=== PATIENT | male | born 1955 | race Caucasian/White ===

== ENCOUNTER → 2016-07-18 | Outpatient (CLI) | payer OTHER ==
[2016-07-18 11:19] LABS: MEAN CORPUSCULAR HEMOGLOBIN 32.7 pg (27.0-33.0); MEAN CORPUSCULAR HGB CONC 34.8 g/dl (32.0-36.5); MEAN CORPUSCULAR VOLUME 93.9 fl (80.0-96.0); RED CELL DISTRIBUTION WIDTH 13.1 % (11.5-14.5); WHITE BLOOD COUNT 6.5 K/mm3 (4.0-10.0)
[2016-07-18 11:40] LABS: ALBUMIN 4.4 GM/DL (3.2-5.2); ALBUMIN/GLOBULIN RATIO 1.57 (1.00-1.93); ALKALINE PHOSPHATASE 54 U/L (45-117); ALT/SGPT 48 U/L (12-78); ANION GAP 7 MEQ/L (8-16); AST/SGOT 32 U/L (15-37); BILIRUBIN,TOTAL 2.1 MG/DL (0.2-1.0); BLOOD UREA NITROGEN 9 MG/DL (7-18); CALCIUM LEVEL 9.6 MG/DL (8.5-10.1); CARBON DIOXIDE LEVEL 33 MEQ/L (21-32); CHLORIDE LEVEL 100 MEQ/L (98-107); CHOLESTEROL LEVEL 153 MG/DL (<200); CREATININE FOR GFR 0.85 MG/DL (0.70-1.30); GLOMERULAR FILTRATION RATE > 60.0 (>56); GLUCOSE, FASTING 108 MG/DL (70-105); POTASSIUM SERUM 4.3 MEQ/L (3.5-5.1); SODIUM LEVEL 140 MEQ/L (136-145); TOTAL PROTEIN 7.2 GM/DL (6.4-8.2); TRIGLYCERIDES LEVEL 113 MG/DL (<150)
== END ==
LOC: M LAB 10:45
PROVIDERS: ATTEND Family Medicine
DX: D64.9 Anemia, unspecified (principal)

== ENCOUNTER → 2016-09-19 | Outpatient (CLI) | payer OTHER ==
[2016-09-19 10:51] LABS: MEAN CORPUSCULAR HEMOGLOBIN 33.2 pg (27.0-33.0); MEAN CORPUSCULAR HGB CONC 35.4 g/dl (32.0-36.5); MEAN CORPUSCULAR VOLUME 93.8 fl (80.0-96.0); RED CELL DISTRIBUTION WIDTH 12.8 % (11.5-14.5); WHITE BLOOD COUNT 7.2 K/mm3 (4.0-10.0)
[2016-09-19 11:22] LABS: ALBUMIN 4.2 GM/DL (3.2-5.2); ALKALINE PHOSPHATASE 58 U/L (45-117); ALT/SGPT 50 U/L (12-78); ANION GAP 5 MEQ/L (8-16); AST/SGOT 34 U/L (15-37); BILIRUBIN,TOTAL 1.9 MG/DL (0.2-1.0); BLOOD UREA NITROGEN 9 MG/DL (7-18); CALCIUM LEVEL 9.2 MG/DL (8.8-10.2); CARBON DIOXIDE LEVEL 33 MEQ/L (21-32); CHLORIDE LEVEL 102 MEQ/L (98-107); CHOLESTEROL LEVEL 151 MG/DL (<200); CREATININE FOR GFR 0.84 MG/DL (0.70-1.30); GLOMERULAR FILTRATION RATE > 60.0 (>49); GLUCOSE, FASTING 113 MG/DL (80-110); PERCENT SATURATION 33.9 % (19.7-37.4); POTASSIUM SERUM 4.1 MEQ/L (3.5-5.1); SODIUM LEVEL 140 MEQ/L (136-145); THYROXINE (T4) 9.3 UG/DL (4.5-12.0); TOTAL IRON BINDING CAPACITY 360 UG/DL (250-450); TRIGLYCERIDES LEVEL 149 MG/DL (<150); URIC ACID 6.1 MG/DL (3.5-7.2)
== END ==
LOC: M LAB 10:25
PROVIDERS: ATTEND Family Medicine
DX: I10 Essential (primary) hypertension (principal)

== ENCOUNTER → 2017-03-23 | Outpatient (CLI) | payer OTHER ==
[2017-03-23 14:44] LABS: COMPLEMENT C3 95.9 MG/DL (90-180); COMPLEMENT C4 22.3 MG/DL (10-40)
[2017-03-29 08:06] LABS: ALPHA 1 ANTITRYPSIN 138 mg/dL (90-200); D001-IgE D pteronyssinus 0.52 kU/L (Class I); E001-IgE Cat Epith/Dander < 0.10 kU/L (Class 0); E005-IgE Dog Dander < 0.10 kU/L (Class 0); F002-IgE Milk < 0.10 kU/L (Class 0); F004-IgE Wheat 1.17 kU/L (Class II); F013-IgE Peanut < 0.10 kU/L (Class 0); F014-IgE Soybean < 0.10 kU/L (Class 0); F026-IgE Pork < 0.10 kU/L (Class 0); F027-IgE Beef < 0.10 kU/L (Class 0); F245-IgE Egg, Whole < 0.10 kU/L (Class 0); FX02-IgE Food Mix (Sea Foods) Negative (.); G002-IgE Bermuda Grass < 0.10 kU/L (Class 0); G008-IgE Kentucky Bluegrass < 0.10 kU/L (Class 0); M001-IgE Penicillium chrysogen < 0.10 kU/L (Class 0); M002 IgE Cladosporium herbaru < 0.10 kU/L (Class 0); M003 IgE Aspergillus fumigatu < 0.10 kU/L (Class 0); M006-IgE Alternaria alternata < 0.10 kU/L (Class 0); T001-IgE Maple/Box Elder < 0.10 kU/L (Class 0); T003-IgE Common Silver Birch < 0.10 kU/L (Class 0); T007-IgE Oak, White 0.11 kU/L (Class 0/I); T008-IgE Elm, American < 0.10 kU/L (Class 0); T015-IgE Ash, White 0.36 kU/L (Class I); T041-IgE Hickory, White < 0.10 kU/L (Class 0); W001-IgE Ragweed, Short < 0.10 kU/L (Class 0); W009-IgE Plantain, English 0.11 kU/L (Class 0/I); W014-IgE Pigweed, Rough < 0.10 kU/L (Class 0); W018-IgE Sheep Sorrel < 0.10 kU/L (Class 0)
== END ==
LOC: M WUC 10:57
PROVIDERS: ATTEND Allergy & Immunology
DX: J30.89 Other allergic rhinitis (principal)

== ENCOUNTER → 2017-05-08 | Outpatient (REF) ==
--- NOTE | 2017-05-08 10:11 | REP ---
Clinical: Pain and disability. Technique: AP, lateral, coned-down views of the lumbosacral spine. Comparison: 10/19/2015. Findings: Stable advanced multilevel degenerative disc osteophyte complexes are appreciated. Findings include old compression fracture at L1, diffuse marginal osteophytes, endplate sclerosis and disc space narrowing along with mild hypertrophic facet changes. No acute fracture / compression injury or subluxation. Impression: Advanced multilevel degenerative changes essentially stable compared to 10/19/2015. No new acute fracture / compression injury or subluxation. Signed by Branden Cardona MD 05/08/2017 10:03 A
== END ==
LOC: M SMT 09:18
PROVIDERS: ATTEND Internal Medicine
DX: M54.16 Radiculopathy, lumbar region (principal)

== ENCOUNTER → 2017-10-23 | Outpatient (CLI) | payer OTHER ==
[2017-10-23 11:05] LABS: HEMATOCRIT 50.2 % (42.0-52.0); HEMOGLOBIN 17.7 g/dl (13.5-17.5); MEAN CORPUSCULAR HGB CONC 35.3 g/dl (32.0-36.5); MEAN CORPUSCULAR VOLUME 93.7 fl (80.0-96.0); PLATELET COUNT, AUTOMATED 135 10^3/uL (150-450); RED BLOOD COUNT 5.36 10^6/uL (4.30-6.10); RED CELL DISTRIBUTION WIDTH 12.1 % (11.5-14.5); WHITE BLOOD COUNT 6.3 10^3/uL (4.0-10.0)
[2017-10-23 11:40] LABS: TOTAL 25(OH) VITAMIN D 35.2 NG/ML (30.0-100.0)
[2017-10-23 11:47] LABS: ALBUMIN 4.4 GM/DL (3.2-5.2); ALBUMIN/GLOBULIN RATIO 1.38 (1.00-1.93); ALKALINE PHOSPHATASE 55 U/L (45-117); ALT/SGPT 70 U/L (12-78); ANION GAP 5 MEQ/L (8-16); AST/SGOT 51 U/L (7-37); BILIRUBIN,TOTAL 1.8 MG/DL (0.2-1.0); BLOOD UREA NITROGEN 10 MG/DL (7-18); CALCIUM LEVEL 9.6 MG/DL (8.8-10.2); CARBON DIOXIDE LEVEL 32 MEQ/L (21-32); CHLORIDE LEVEL 104 MEQ/L (98-107); CHOLESTEROL LEVEL 167 MG/DL (<200); CHOLESTEROL RISK RATIO 3.479 (<5); CREATININE FOR GFR 0.79 MG/DL (0.70-1.30); GLOMERULAR FILTRATION RATE > 60.0 (>49); GLUCOSE, FASTING 104 MG/DL (70-100); HDL CHOLESTEROL 48 MG/DL (>40); LDL CHOLESTEROL 90.4 MG/DL (<100); NON-HDL-C 119 MG/DL; POTASSIUM SERUM 4.4 MEQ/L (3.5-5.1); PROSTATIC SPECIFIC AG MONITOR 0.47 NG/ML (< 4.0); SODIUM LEVEL 141 MEQ/L (136-145); TOTAL PROTEIN 7.6 GM/DL (6.4-8.2); TRIGLYCERIDES LEVEL 143 MG/DL (<150)
[2017-10-23 12:41] LABS: ESTIMATED AVERAGE GLUCOSE 88 MG/DL (60-110); HEMOGLOBIN A1c 4.7 %
== END ==
LOC: M LAB 10:20
DX: R53.83 Other fatigue (principal); I10 Essential (primary) hypertension; E03.9 Hypothyroidism, unspecified
CPT/HCPCS: 71046

== ENCOUNTER 2018-02-26 09:56 | Outpatient (RCR) | payer OTHER | END 2018-03-17 | LOC: M ST 09:56 | DX: G20 Parkinson's disease (principal); R49.0 Dysphonia | CPT/HCPCS: 92507 ==

== ENCOUNTER 2018-03-06 07:16 | Inpatient (IN) | payer OTHER ==
[~2018-03-06 07:16] MED LIST: LR 1,000 ML IV; ONDANSETRON 4MG/2ML VIAL (J2405) As Ordered; PROPOFOL 200 MG/20 ML VIAL As Ordered; ROCURONIUM BROMIDE 50 MG/5 ML VIAL As Ordered; dexameTHASONE 4 MG/ML 1ML VIAL (J1100) As Ordered
[2018-03-06] MEDS ORDERED: fentaNYL 250 MCG/5 ML INJECTION (J3010) As Ordered ×2 (07:17→11:18)
[2018-03-06] MEDS ORDERED: MIDAZOLAM INJ 2 MG/2 ML VIAL (J2250) As Ordered (07:18)
[2018-03-06] MEDS ORDERED: GLYCOPYRROLATE INJ 0.2 MG/ML 2 ML VIAL As Ordered (07:31)
[2018-03-06] MEDS ORDERED: KETOROLAC 60 MG/2 ML VIAL (J1885) As Ordered (07:31)
[2018-03-06] MEDS ORDERED: NEOSTIGMINE 10 MG/10 ML VIAL (J2710) As Ordered (07:31)
[2018-03-06] MEDS: LIDOCAINE 1% SDV INJ 30 ML VIAL As Ordered (08:20)
[2018-03-06] MEDS ORDERED: ROCURONIUM BROMIDE 50 MG/5 ML VIAL As Ordered ×3 (08:20→11:16)
[2018-03-06] MEDS: BUPIVACAINE HCL 0.25% 30 ML VIAL As Ordered (08:20)
[2018-03-06] MEDS ORDERED: LIDOCAINE 2% INJ 100 MG/5 ML SDV (FOR ANES.) As Ordered (08:48)
[2018-03-06] MEDS ORDERED: HYDROmorphone HCL 2 MG/ML 1ML VIAL (J1170) As Ordered (09:22)
[2018-03-06] MEDS ORDERED: PROPOFOL 200 MG/20 ML VIAL As Ordered (09:29)
[2018-03-06] MEDS ORDERED: ESMOLOL INJ 100MG/10ML VIAL As Ordered (10:02)
[2018-03-06] MEDS ORDERED: PHENYLephrine HCL 500 MCG/5 ML (100MCG/ML) SYRINGE (J2370) As Ordered ×3 (11:01→13:06)
[2018-03-06] MEDS ORDERED: PHENYLEPHRINE INJ 10MG/ML VIAL (J2370) As Ordered (11:01)
[2018-03-06] MEDS: CONRAY-60 60% 50ML VIAL (Q9961) As Ordered (12:00)
[2018-03-06] MEDS: ceFAZolin 2 GM/D5W 50 ML IV BAG (J0690 PER 500MG) As Ordered (12:33)
[2018-03-06] MEDS ORDERED: ePHEDrine SULFATE 25 MG/5 ML(5MG/ML) SYRINGE As Ordered ×2 (13:06→13:07)
[2018-03-06] MEDS ORDERED: SUGAMMADEX SODIUM 500 MG/5 ML VIAL (BRIDION) As Ordered (13:13)
[2018-03-06] MEDS: BUPIVACAINE HCL 0.25% 10 ML VIAL As Ordered (13:14)
[2018-03-06] MEDS: BUPIVACAINE LIPOSOME/PF 1.3% 20 ML VIAL (13.3MG/ML)(EXPAREL) As Ordered (13:14)
[2018-03-06] MEDS ORDERED: ACETAMINOPHEN TAB 650MG DOSE (2X325MG) PO (13:45)
[2018-03-06] MEDS ORDERED: diphenhydrAMINE 50 MG CAP PO (13:45)
[2018-03-06] MEDS ORDERED: PERCOCET 5MG/325MG TAB As Ordered (13:58)
[2018-03-06] MEDS: LABETALOL HCL 100 MG/20 ML VIAL IV ×2 (14:00→14:28)
[2018-03-06 14:01] LABS: HEMATOCRIT 39.3 % (42.0-52.0); HEMOGLOBIN 13.5 g/dl (13.5-17.5); MEAN CORPUSCULAR HGB CONC 34.4 g/dl (32.0-36.5); MEAN CORPUSCULAR VOLUME 96.1 fl (80.0-96.0); PLATELET COUNT, AUTOMATED 185 10^3/uL (150-450); RED BLOOD COUNT 4.09 10^6/uL (4.30-6.10); RED CELL DISTRIBUTION WIDTH 12.2 % (11.5-14.5); WHITE BLOOD COUNT 14.5 10^3/uL (4.0-10.0)
[2018-03-06] MEDS ORDERED: LABETALOL HCL 100 MG/20 ML VIAL As Ordered (14:01)
[2018-03-06] MEDS ORDERED: fentaNYL 100 MCG/2 ML INJECTION (J3010) IV (14:15)
[2018-03-06] MEDS: PERCOCET 5MG/325MG TAB PO ×2 (14:15→14:57)
[2018-03-06] MEDS ORDERED: HYDROMORPHONE HCL 0.5 MG/ 0.5 ML SYRINGE (J1170 PER 1) IV (14:15)
[2018-03-06] MEDS ORDERED: ONDANSETRON 4MG/2ML VIAL (J2405) IV (14:15)
[2018-03-06] MEDS ORDERED: METOPROLOL 5 MG/5 ML VIAL IV (14:30)
[2018-03-06 14:31] LABS: ALBUMIN 3.2 GM/DL (3.2-5.2); ANION GAP 9 MEQ/L (8-16); BLOOD UREA NITROGEN 8 MG/DL (7-18); CALCIUM LEVEL 8.7 MG/DL (8.8-10.2); CARBON DIOXIDE LEVEL 25 MEQ/L (21-32); CHLORIDE LEVEL 109 MEQ/L (98-107); CREATININE FOR GFR 0.73 MG/DL (0.70-1.30); GLOMERULAR FILTRATION RATE > 60.0 (>49); GLUCOSE, FASTING 170 MG/DL (70-100); PHOSPHORUS LEVEL 3.6 MG/DL (2.5-4.9); POTASSIUM SERUM 4.7 MEQ/L (3.5-5.1); SODIUM LEVEL 143 MEQ/L (136-145)
[2018-03-06 14:35] LABS: BEDSIDE GLUCOSE 170 MG/DL (80-115)
[2018-03-06] MEDS: LR 1,000 ML IV ×2 (15:51→16:11)
[2018-03-06] MEDS: VITAMIN D 1,000 INTERNATIONAL UNITS TABLET PO (16:11)
[2018-03-06] MEDS: MORPHINE 4 MG/ML 1ML VIAL/SYRINGE (J2270) IV (16:11)
[2018-03-06] MEDS: METOCLOPRAMIDE INJ 10MG/2ML VIAL (J2765) IV (17:02)
[2018-03-06 18:22] LABS: HEMATOCRIT 37.8 % (42.0-52.0); HEMOGLOBIN 13.1 g/dl (13.5-17.5)
[2018-03-06 20:14] LABS: BEDSIDE GLUCOSE 207 MG/DL (80-115)
[2018-03-06] MEDS: CARVedilol 12.5 MG TAB PO (20:44)
[2018-03-06] MEDS: SENOKOT S TAB PO (21:58)
[2018-03-06] MEDS: FLUTICASONE PROP 0.05% NASAL SPRAY 16 GM (FLONASE) (22:08)
[2018-03-07] MEDS: NORCO, ANEXSIA 5/325MG TABLET (HYDROcodone/ACETAMINOPHEN) PO ×4 (04:28→23:06)
[2018-03-07 06:06] LABS: HEMATOCRIT 30.9 % (42.0-52.0); MEAN CORPUSCULAR HEMOGLOBIN 33.6 pg (27.0-33.0); MEAN CORPUSCULAR HGB CONC 35.3 g/dl (32.0-36.5); MEAN CORPUSCULAR VOLUME 95.4 fl (80.0-96.0); PLATELET COUNT, AUTOMATED 169 10^3/uL (150-450); RED BLOOD COUNT 3.24 10^6/uL (4.30-6.10); RED CELL DISTRIBUTION WIDTH 12.2 % (11.5-14.5); WHITE BLOOD COUNT 16.7 10^3/uL (4.0-10.0)
[2018-03-07 06:15] LABS: HEMOGLOBIN 10.9 g/dl (13.5-17.5)
[2018-03-07 06:33] LABS: ALBUMIN 3.1 GM/DL (3.2-5.2); ALBUMIN/GLOBULIN RATIO 1.35 (1.00-1.93); ALKALINE PHOSPHATASE 39 U/L (45-117); ALT/SGPT 256 U/L (12-78); ANION GAP 10 MEQ/L (8-16); AST/SGOT 231 U/L (7-37); BILIRUBIN,TOTAL 2.2 MG/DL (0.2-1.0); BLOOD UREA NITROGEN 9 MG/DL (7-18); CALCIUM LEVEL 8.5 MG/DL (8.8-10.2); CARBON DIOXIDE LEVEL 28 MEQ/L (21-32); CHLORIDE LEVEL 100 MEQ/L (98-107); CREATININE FOR GFR 0.87 MG/DL (0.70-1.30); GLOMERULAR FILTRATION RATE > 60.0 (>49); GLUCOSE, FASTING 139 MG/DL (70-100); SODIUM LEVEL 138 MEQ/L (136-145); TOTAL PROTEIN 5.4 GM/DL (6.4-8.2)
[2018-03-07] MEDS: FLUTICASONE PROP 0.05% NASAL SPRAY 16 GM (FLONASE) (09:10)
[2018-03-07] MEDS: LOSARTAN 50 MG TAB PO (09:10)
[2018-03-07] MEDS: CARVedilol 12.5 MG TAB PO ×2 (09:10→22:02)
[2018-03-07] MEDS: LORATADINE 10 MG TAB PO (09:10)
[2018-03-07] MEDS: SENOKOT S TAB PO ×2 (09:10→20:47)
[2018-03-07] MEDS: VITAMIN D 1,000 INTERNATIONAL UNITS TABLET PO (09:10)
[2018-03-07 09:46] LABS: PLATELET COUNT, AUTOMATED 184 10^3/uL (150-450)
[2018-03-07 09:57] LABS: INR 1.11; PROTHROMBIN TIME 14.4 SECONDS (12.1-14.4)
[2018-03-07 09:58] LABS: FIBRINOGEN 348 MG/DL (221-452); PARTIAL THROMBOPLASTIN TIME 29.7 SECONDS (25.4-37.6)
[2018-03-07 10:02] LABS: D-DIMER QUANT 1198.4 ng/ml (<500)
[2018-03-07 10:04] LABS: BILIRUBIN,DIRECT 0.4 MG/DL (0.0-0.2)
[2018-03-07] MEDS: AMPICILLIN SOD/SULBACTAM SOD 3 GM in D5W MINI-BAG PLUS 100 ML IV ×3 (10:56→20:48)
[2018-03-08] MEDS: AMPICILLIN SOD/SULBACTAM SOD 3 GM in D5W MINI-BAG PLUS 100 ML IV ×4 (02:35→21:21)
[2018-03-08] MEDS: NORCO, ANEXSIA 5/325MG TABLET (HYDROcodone/ACETAMINOPHEN) PO ×2 (05:22→13:29)
[2018-03-08 05:59] LABS: BASO # 0.1 10^3/uL (0.0-0.2); BASO % 0.6 % (0.0-1.0); EOS # 0.2 10^3/uL (0.0-0.50); EOS % 1.5 % (0.0-3.0); HEMATOCRIT 23.7 % (42.0-52.0); IMMATURE GRANULOCYTE % 0.5 % (0-3.0); LYMPH # 1.4 10^3/uL (1.5-4.5); LYMPH % 11.6 % (24.0-44.0); MEAN CORPUSCULAR HEMOGLOBIN 33.6 pg (27.0-33.0); MEAN CORPUSCULAR HGB CONC 35.9 g/dl (32.0-36.5); MEAN CORPUSCULAR VOLUME 93.7 fl (80.0-96.0); MONO % 8.6 % (0.0-5.0); NEUTROPHILS # 9.2 10^3/uL (1.8-7.7); NEUTROPHILS % 77.2 % (36.0-66.0); PLATELET COUNT, AUTOMATED 103 10^3/uL (150-450); RED BLOOD COUNT 2.53 10^6/uL (4.30-6.10); RED CELL DISTRIBUTION WIDTH 12.1 % (11.5-14.5); WHITE BLOOD COUNT 11.9 10^3/uL (4.0-10.0)
[2018-03-08 06:03] LABS: HEMOGLOBIN 8.5 g/dl (13.5-17.5)
[2018-03-08 06:32] LABS: ALBUMIN 2.8 GM/DL (3.2-5.2); ALBUMIN/GLOBULIN RATIO 1.12 (1.00-1.93); ALKALINE PHOSPHATASE 35 U/L (45-117); ALT/SGPT 159 U/L (12-78); ANION GAP 5 MEQ/L (8-16); AST/SGOT 115 U/L (7-37); BILIRUBIN,TOTAL 1.7 MG/DL (0.2-1.0); BLOOD UREA NITROGEN 5 MG/DL (7-18); CALCIUM LEVEL 7.9 MG/DL (8.8-10.2); CARBON DIOXIDE LEVEL 32 MEQ/L (21-32); CHLORIDE LEVEL 100 MEQ/L (98-107); CREATININE FOR GFR 0.54 MG/DL (0.70-1.30); GLOMERULAR FILTRATION RATE > 60.0 (>49); GLUCOSE, FASTING 117 MG/DL (70-100); POTASSIUM SERUM 3.4 MEQ/L (3.5-5.1); SODIUM LEVEL 137 MEQ/L (136-145); TOTAL PROTEIN 5.3 GM/DL (6.4-8.2)
[2018-03-08] MEDS: KETOROLAC 30 MG/ML VIAL (J1885) IV (10:03)
[2018-03-08] MEDS: ONDANSETRON 4MG/2ML VIAL (J2405) IV ×2 (10:03→17:27)
[2018-03-08] MEDS: POTASSIUM CHLORIDE 10 MEQ SR TABLET PO ×2 (10:04→21:21)
[2018-03-08] MEDS: SENOKOT S TAB PO ×2 (10:05→21:21)
[2018-03-08] MEDS: FUROSEMIDE 40 MG TAB PO (10:05)
[2018-03-08] MEDS: VITAMIN D 1,000 INTERNATIONAL UNITS TABLET PO (10:05)
[2018-03-08] MEDS: LOSARTAN 50 MG TAB PO (10:05)
[2018-03-08] MEDS: CARVedilol 12.5 MG TAB PO ×2 (10:05→21:21)
[2018-03-08] MEDS: LORATADINE 10 MG TAB PO (10:06)
[2018-03-08] MEDS: FLUTICASONE PROP 0.05% NASAL SPRAY 16 GM (FLONASE) (10:06)
[2018-03-09] MEDS: AMPICILLIN SOD/SULBACTAM SOD 3 GM in D5W MINI-BAG PLUS 100 ML IV ×4 (03:06→21:40)
[2018-03-09 05:42] LABS: BASO # 0.1 10^3/uL (0.0-0.2); BASO % 0.7 % (0.0-1.0); EOS # 0.4 10^3/uL (0.0-0.50); EOS % 4.2 % (0.0-3.0); HEMATOCRIT 22.9 % (42.0-52.0); HEMOGLOBIN 8.1 g/dl (13.5-17.5); IMMATURE GRANULOCYTE % 0.6 % (0-3.0); LYMPH # 1.5 10^3/uL (1.5-4.5); LYMPH % 18.2 % (24.0-44.0); MEAN CORPUSCULAR HEMOGLOBIN 33.9 pg (27.0-33.0); MEAN CORPUSCULAR HGB CONC 35.4 g/dl (32.0-36.5); MEAN CORPUSCULAR VOLUME 95.8 fl (80.0-96.0); MONO # 0.8 10^3/uL (0.0-0.8); MONO % 9.4 % (0.0-5.0); NEUTROPHILS # 5.7 10^3/uL (1.8-7.7); NEUTROPHILS % 66.9 % (36.0-66.0); PLATELET COUNT, AUTOMATED 115 10^3/uL (150-450); RED BLOOD COUNT 2.39 10^6/uL (4.30-6.10); RED CELL DISTRIBUTION WIDTH 12.3 % (11.5-14.5); WHITE BLOOD COUNT 8.5 10^3/uL (4.0-10.0)
[2018-03-09 06:00] LABS: ALBUMIN 2.7 GM/DL (3.2-5.2); ALKALINE PHOSPHATASE 43 U/L (45-117); ALT/SGPT 136 U/L (12-78); ANION GAP 6 MEQ/L (8-16); AST/SGOT 82 U/L (7-37); BILIRUBIN,TOTAL 1.1 MG/DL (0.2-1.0); BLOOD UREA NITROGEN 3 MG/DL (7-18); CALCIUM LEVEL 7.9 MG/DL (8.8-10.2); CARBON DIOXIDE LEVEL 33 MEQ/L (21-32); CHLORIDE LEVEL 101 MEQ/L (98-107); CREATININE FOR GFR 0.63 MG/DL (0.70-1.30); GLOMERULAR FILTRATION RATE > 60.0 (>49); GLUCOSE, FASTING 117 MG/DL (70-100); POTASSIUM SERUM 3.8 MEQ/L (3.5-5.1); SODIUM LEVEL 140 MEQ/L (136-145); TOTAL PROTEIN 5.4 GM/DL (6.4-8.2)
[2018-03-09] MEDS: NORCO, ANEXSIA 5/325MG TABLET (HYDROcodone/ACETAMINOPHEN) PO (06:30)
[2018-03-09] MEDS: KETOROLAC 30 MG/ML VIAL (J1885) IV (07:24)
[2018-03-09] MEDS: POTASSIUM CHLORIDE 10 MEQ SR TABLET PO ×2 (09:08→21:39)
[2018-03-09] MEDS: LORATADINE 10 MG TAB PO (09:09)
[2018-03-09] MEDS: CARVedilol 12.5 MG TAB PO ×2 (09:09→21:40)
[2018-03-09] MEDS: VITAMIN D 1,000 INTERNATIONAL UNITS TABLET PO (09:09)
[2018-03-09] MEDS: FUROSEMIDE 40 MG TAB PO (09:10)
[2018-03-09] MEDS: LOSARTAN 50 MG TAB PO (09:10)
[2018-03-09] MEDS: FLUTICASONE PROP 0.05% NASAL SPRAY 16 GM (FLONASE) (09:10)
[2018-03-09] MEDS: SENOKOT S TAB PO (09:10)
[2018-03-10] MEDS: AMPICILLIN SOD/SULBACTAM SOD 3 GM in D5W MINI-BAG PLUS 100 ML IV ×4 (03:17→21:29)
[2018-03-10 06:45] LABS: BASO # 0.1 10^3/uL (0.0-0.2); BASO % 1.1 % (0.0-1.0); EOS # 0.5 10^3/uL (0.0-0.50); EOS % 6.1 % (0.0-3.0); HEMOGLOBIN 8.7 g/dl (13.5-17.5); IMMATURE GRANULOCYTE % 0.5 % (0-3.0); LYMPH # 1.7 10^3/uL (1.5-4.5); LYMPH % 21.3 % (24.0-44.0); MEAN CORPUSCULAR HEMOGLOBIN 33.7 pg (27.0-33.0); MEAN CORPUSCULAR HGB CONC 34.8 g/dl (32.0-36.5); MEAN CORPUSCULAR VOLUME 96.9 fl (80.0-96.0); MONO # 0.8 10^3/uL (0.0-0.8); MONO % 9.7 % (0.0-5.0); NEUTROPHILS % 61.3 % (36.0-66.0); PLATELET COUNT, AUTOMATED 157 10^3/uL (150-450); RED BLOOD COUNT 2.58 10^6/uL (4.30-6.10); RED CELL DISTRIBUTION WIDTH 12.7 % (11.5-14.5); WHITE BLOOD COUNT 8.1 10^3/uL (4.0-10.0)
[2018-03-10] MEDS: LORATADINE 10 MG TAB PO (09:03)
[2018-03-10] MEDS: CARVedilol 12.5 MG TAB PO ×2 (09:03→21:29)
[2018-03-10] MEDS: POTASSIUM CHLORIDE 10 MEQ SR TABLET PO ×2 (09:03→21:28)
[2018-03-10] MEDS: VITAMIN D 1,000 INTERNATIONAL UNITS TABLET PO (09:03)
[2018-03-10] MEDS: FLUTICASONE PROP 0.05% NASAL SPRAY 16 GM (FLONASE) (09:04)
[2018-03-10] MEDS: LOSARTAN 50 MG TAB PO (09:04)
[2018-03-11] MEDS: AMPICILLIN SOD/SULBACTAM SOD 3 GM in D5W MINI-BAG PLUS 100 ML IV ×2 (03:18→09:00)
[2018-03-11 06:27] LABS: BASO # 0.1 10^3/uL (0.0-0.2); BASO % 1.2 % (0.0-1.0); EOS # 0.5 10^3/uL (0.0-0.50); HEMATOCRIT 27.5 % (42.0-52.0); HEMOGLOBIN 9.4 g/dl (13.5-17.5); IMMATURE GRANULOCYTE % 0.9 % (0-3.0); LYMPH # 2.1 10^3/uL (1.5-4.5); MEAN CORPUSCULAR HEMOGLOBIN 33.3 pg (27.0-33.0); MEAN CORPUSCULAR HGB CONC 34.2 g/dl (32.0-36.5); MEAN CORPUSCULAR VOLUME 97.5 fl (80.0-96.0); MONO # 0.8 10^3/uL (0.0-0.8); MONO % 9.8 % (0.0-5.0); NEUTROPHILS # 4.2 10^3/uL (1.8-7.7); NEUTROPHILS % 54.1 % (36.0-66.0); PLATELET COUNT, AUTOMATED 181 10^3/uL (150-450); RED BLOOD COUNT 2.82 10^6/uL (4.30-6.10); WHITE BLOOD COUNT 7.7 10^3/uL (4.0-10.0)
[2018-03-11 06:52] LABS: ALBUMIN 3.2 GM/DL (3.2-5.2); ALBUMIN/GLOBULIN RATIO 1.23 (1.00-1.93); ALKALINE PHOSPHATASE 53 U/L (45-117); ALT/SGPT 94 U/L (12-78); ANION GAP 9 MEQ/L (8-16); AST/SGOT 35 U/L (7-37); BILIRUBIN,TOTAL 1.1 MG/DL (0.2-1.0); BLOOD UREA NITROGEN 4 MG/DL (7-18); CALCIUM LEVEL 8.4 MG/DL (8.8-10.2); CARBON DIOXIDE LEVEL 28 MEQ/L (21-32); CHLORIDE LEVEL 106 MEQ/L (98-107); CREATININE FOR GFR 0.59 MG/DL (0.70-1.30); GLOMERULAR FILTRATION RATE > 60.0 (>49); GLUCOSE, FASTING 106 MG/DL (70-100); SODIUM LEVEL 143 MEQ/L (136-145); TOTAL PROTEIN 5.8 GM/DL (6.4-8.2)
[2018-03-11] MEDS: FLUTICASONE PROP 0.05% NASAL SPRAY 16 GM (FLONASE) (09:00)
[2018-03-11] MEDS: POTASSIUM CHLORIDE 10 MEQ SR TABLET PO (09:00)
[2018-03-11] MEDS: VITAMIN D 1,000 INTERNATIONAL UNITS TABLET PO (09:12)
[2018-03-11] MEDS: LOSARTAN 50 MG TAB PO (09:13)
[2018-03-11] MEDS: LORATADINE 10 MG TAB PO (09:13)
[2018-03-11] MEDS: CARVedilol 12.5 MG TAB PO (09:13)
== END 2018-03-11 11:50 | disposition home or self-care (01) | DRG 415 ==
LOC: M SDC 07:16 → M PED 15:23 → M SDC 13:34 → M PED 13:35 → M MSPAV 22:53
PROC: 0FT40ZZ Resection of Gallbladder, Open Approach (ICD-10-PCS; principal; 2018-03-06 07:47)
PROC: 04Q30ZZ Repair Hepatic Artery, Open Approach (ICD-10-PCS; 2018-03-06 07:47)
PROC: BF03YZZ Plain Radiography of Gallbladder and Bile Ducts using Other Contrast (ICD-10-PCS; 2018-03-06 07:47)
DX: K80.19 Calculus of gallbladder with other cholecystitis with obstruction (principal); Q44.1 Other congenital malformations of gallbladder; K91.61 Intraoperative hemorrhage and hematoma of a digestive system organ or structure complicating a digestive system procedure; D50.0 Iron deficiency anemia secondary to blood loss (chronic); G20 Parkinson's disease; R68.0 Hypothermia, not associated with low environmental temperature; I10 Essential (primary) hypertension; I48.91 Unspecified atrial fibrillation; R94.5 Abnormal results of liver function studies; I25.10 Atherosclerotic heart disease of native coronary artery without angina pectoris; Z53.31 Laparoscopic surgical procedure converted to open procedure; Z79.82 Long term (current) use of aspirin; Z79.899 Other long term (current) drug therapy; Z95.1 Presence of aortocoronary bypass graft

== ENCOUNTER 2018-03-21 08:06 | Outpatient (RCR) | payer OTHER | END 2018-04-17 | LOC: M ST 03-26 07:30 | DX: G20 Parkinson's disease (principal) | CPT/HCPCS: 92507 ==

== ENCOUNTER → 2018-04-15 | Outpatient (CLI) | payer OTHER ==
[2018-04-15 08:48] LABS: HEMATOCRIT 45.7 % (42.0-52.0); HEMOGLOBIN 14.7 g/dl (13.5-17.5); MEAN CORPUSCULAR HEMOGLOBIN 29.8 pg (27.0-33.0); MEAN CORPUSCULAR HGB CONC 32.2 g/dl (32.0-36.5); MEAN CORPUSCULAR VOLUME 92.5 fl (80.0-96.0); PLATELET COUNT, AUTOMATED 163 10^3/uL (150-450); RED BLOOD COUNT 4.94 10^6/uL (4.30-6.10); RED CELL DISTRIBUTION WIDTH 13.2 % (11.5-14.5); WHITE BLOOD COUNT 5.3 10^3/uL (4.0-10.0)
[2018-04-15 09:09] LABS: ESTIMATED AVERAGE GLUCOSE 77 MG/DL (60-110); HEMOGLOBIN A1c 4.3 %
[2018-04-15 09:12] LABS: ALBUMIN 3.9 GM/DL (3.2-5.2); ALKALINE PHOSPHATASE 68 U/L (45-117); ALT/SGPT 23 U/L (12-78); ANION GAP 6 MEQ/L (8-16); AST/SGOT 17 U/L (7-37); BILIRUBIN,TOTAL 1.1 MG/DL (0.2-1.0); BLOOD UREA NITROGEN 7 MG/DL (7-18); CARBON DIOXIDE LEVEL 32 MEQ/L (21-32); CHLORIDE LEVEL 106 MEQ/L (98-107); CREATININE FOR GFR 0.78 MG/DL (0.70-1.30); GLOMERULAR FILTRATION RATE > 60.0 (>49); GLUCOSE, FASTING 86 MG/DL (70-100); POTASSIUM SERUM 4.1 MEQ/L (3.5-5.1); PROSTATIC SPECIFIC AG MONITOR 0.46 NG/ML (< 4.0); SODIUM LEVEL 144 MEQ/L (136-145); TOTAL PROTEIN 6.9 GM/DL (6.4-8.2)
== END ==
LOC: M LAB 07:39
DX: D64.9 Anemia, unspecified (principal)
CPT/HCPCS: 80053

== ENCOUNTER 2019-01-08 09:46 | Day surgery (SDC) | payer OTHER, MEDICARE ==
[~2019-01-08] VITALS: Ht 188 cm; Wt 83.5 kg
[~2019-01-08 09:46] MED LIST changes: +ASPI81TA85 PO; +BAYE325T12 PO; +CARV25TA PO; +CO Q200C10 PO; +COQ-100C5 PO; +DIGO0.25 PO; +DIPH50TA3 PO; +EPIN0.3I11 IM; +FERR325T16 PO; +FLUTISP; +FOLI400T PO; +LORA10TA3 PO; +LORA5SOL12 PO; +LOSA50TA88 PO; -LR 1,000 ML IV; +MM S100C PO; +MULTCAP PO; +MULTTAB50 PO; +NS 1,000 ML IV ONE; -ONDANSETRON 4MG/2ML VIAL (J2405) As Ordered; -PROPOFOL 200 MG/20 ML VIAL As Ordered; +PROPOFOL 200 MG/20 ML VIAL As Ordered ONE; -ROCURONIUM BROMIDE 50 MG/5 ML VIAL As Ordered; +VITA200021 PO; +VITA200025 PO; -dexameTHASONE 4 MG/ML 1ML VIAL (J1100) As Ordered
--- NOTE | 2019-01-08 12:07 | ROOR ---
Patient Name: Adan Paige Procedure Date: 01/08/2019 11:41 AM Date of : 1955 Age: 63 Room: [facility] Gender: Male Note Status: Finalized Procedure: Total Colonoscopy to Cecum + ileoscopy + Bx Indications: Last colonoscopy: 2012, Change in bowel habits Providers: Serge Shore MD Referring MD: DEYSI CORONEL MD Requesting Provider: Medicines: Monitored Anesthesia Care Complications: No immediate complications. Procedure: Pre-Anesthesia Assessment: - The heart rate, respiratory rate, oxygen saturations, blood pressure, adequacy of pulmonary ventilation, and response to care were monitored throughout the procedure. The Colonoscope was introduced through the anus and advanced to the cecum, identified by appendiceal orifice and ileocecal valve. The colonoscopy was performed without difficulty. The patient tolerated the procedure well. The quality of the bowel preparation was good. Findings: The perianal and digital rectal examinations were normal. Non-bleeding internal hemorrhoids were found during retroflexion. The hemorrhoids were small and Grade I (internal hemorrhoids that do not prolapse). A localized area of mildly congested and erythematous mucosa was found in the rectum. Biopsies were taken with a cold forceps for histology. Scattered small-mouthed diverticula were found in the recto-sigmoid colon, sigmoid colon and descending colon. Biopsies for histology were taken with a cold forceps from the ascending colon, transverse colon and descending colon for evaluation of microscopic colitis. The exam was otherwise without abnormality on direct and retroflexion views. The exam was otherwise without abnormality. The terminal ileum appeared normal. Impression: - Non-bleeding internal hemorrhoids. - Congested and erythematous mucosa in the rectum. Biopsied. - Diverticulosis in the recto-sigmoid colon, in the sigmoid colon and in the descending colon. Biopsied. - The examination was otherwise normal on direct and retroflexion views. - The examination was otherwise normal. - The examined portion of the ileum was normal. - The exam was otherwise normal to the cecum. Recommendation: - Patient has a contact number available for emergencies. The signs and symptoms of potential delayed complications were discussed with the patient. Return to normal activities tomorrow. Written discharge instructions were provided to the patient. - High fiber diet. - Discharge patient to home. - Continue present medications. - Await pathology results. - Telephone GI clinic for pathology results in 1 week. - Check Portal Online for Path Results.([email or web address]) - Repeat colonoscopy in 10 years for surveillance. - Return to referring physician. - The findings and recommendations were discussed with the patient's family. Serge Shore MD Serge Shore MD 01/08/2019 12:07:03 PM Electronically signed by Serge Shore MD Number of Addenda: 0 Note Initiated On: 01/08/2019 11:41 AM Estimated Blood Loss: Estimated blood loss: none.
[2019-01-08 12:34] VITALS: BP 122/80
== END 2019-01-08 12:34 | disposition home or self-care (01) ==
LOC: M OPP 09:46
PROVIDERS: ATTEND Internal Medicine Gastroenterology
DX: K64.0 First degree hemorrhoids (principal); K62.89 Other specified diseases of anus and rectum; K57.30 Diverticulosis of large intestine without perforation or abscess without bleeding; R19.4 Change in bowel habit

== ENCOUNTER → 2019-04-18 | Outpatient (CLI) | payer OTHER, MEDICARE ==
[~2019-04-18] MED LIST changes: -NS 1,000 ML IV ONE; -PROPOFOL 200 MG/20 ML VIAL As Ordered ONE
[2019-04-22 08:06] LABS: D001-IgE D pteronyssinus 0.29 kU/L (Class 0/I); E001-IgE Cat Epith/Dander < 0.10 kU/L (Class 0); E003-IGE HORSE EPITHELIA/DAND <0.10 kU/L (Class 0); E004-IGE COW DANDER <0.10 kU/L (Class 0); E005-IgE Dog Dander < 0.10 kU/L (Class 0); F002-IgE Milk < 0.10 kU/L (Class 0); F004-IgE Wheat 1.78 kU/L (Class III); F013-IgE Peanut < 0.10 kU/L (Class 0); F014-IgE Soybean < 0.10 kU/L (Class 0); F026-IgE Pork < 0.10 kU/L (Class 0); F027-IgE Beef < 0.10 kU/L (Class 0); F245-IgE Egg, Whole < 0.10 kU/L (Class 0); FX02-IgE Food Mix (Sea Foods) Negative (.); G002-IgE Bermuda Grass < 0.10 kU/L (Class 0); G008-IgE Kentucky Bluegrass < 0.10 kU/L (Class 0); M001-IgE Penicillium chrysogen < 0.10 kU/L (Class 0); M002 IgE Cladosporium herbaru < 0.10 kU/L (Class 0); M003 IgE Aspergillus fumigatu < 0.10 kU/L (Class 0); M006-IgE Alternaria alternata < 0.10 kU/L (Class 0); T001-IgE Maple/Box Elder < 0.10 kU/L (Class 0); T003-IgE Common Silver Birch < 0.10 kU/L (Class 0); T006-IgE Cedar, Mountain 0.12 kU/L (Class 0/I); T007-IgE Oak, White < 0.10 kU/L (Class 0); T008-IgE Elm, American < 0.10 kU/L (Class 0); T015-IgE Ash, White 0.19 kU/L (Class 0/I); T041-IgE Hickory, White < 0.10 kU/L (Class 0); T070-IgE White Mulberry < 0.10 kU/L (Class 0); W001-IgE Ragweed, Short < 0.10 kU/L (Class 0); W014-IgE Pigweed, Rough < 0.10 kU/L (Class 0); W018-IgE Sheep Sorrel < 0.10 kU/L (Class 0)
== END ==
LOC: M WUC 09:25
PROVIDERS: ATTEND Nurse Practitioner Family
DX: J30.1 Allergic rhinitis due to pollen (principal); J30.89 Other allergic rhinitis

== ENCOUNTER → 2020-02-18 | Outpatient (CLI) | payer OTHER, MEDICARE ==
[~2020-02-18] MED LIST changes: -ASPI81TA85 PO; +ASPI81TA86 PO; -DIGO0.25 PO; +DIGO0.253 PO
[2020-02-18 11:49] LABS: HEMATOCRIT 49.8 % (42.0-52.0); HEMOGLOBIN 17.2 g/dl (13.5-17.5); MEAN CORPUSCULAR HGB CONC 34.5 g/dl (32.0-36.5); MEAN CORPUSCULAR VOLUME 95.4 fl (80.0-96.0); PLATELET COUNT, AUTOMATED 132 10^3/uL (150-450); RED BLOOD COUNT 5.22 10^6/uL (4.30-6.10); WHITE BLOOD COUNT 7.1 10^3/uL (4.0-10.0)
[2020-02-18 12:03] LABS: HEMOGLOBIN A1c 4.9 %
[2020-02-18 12:27] LABS: ALBUMIN 4.2 GM/DL (3.2-5.2); ALT/SGPT 43 U/L (12-78); BILIRUBIN,TOTAL 2.2 MG/DL (0.2-1.0); BLOOD UREA NITROGEN 10 MG/DL (7-18); CALCIUM LEVEL 9.6 MG/DL (8.8-10.2); CARBON DIOXIDE LEVEL 31 MEQ/L (21-32); CHLORIDE LEVEL 102 MEQ/L (98-107); CHOLESTEROL LEVEL 169 MG/DL (<200); CHOLESTEROL RISK RATIO 2.816 (<5); CREATININE FOR GFR 0.69 MG/DL (0.70-1.30); GLOMERULAR FILTRATION RATE > 60.0 (>49); GLUCOSE, FASTING 96 MG/DL (70-100); HDL CHOLESTEROL 60 MG/DL (>40); LDL CHOLESTEROL 83 MG/DL (<100); NON-HDL-C 109 MG/DL; POTASSIUM SERUM 3.9 MEQ/L (3.5-5.1); PROSTATIC SPECIFIC AG MONITOR 0.53 NG/ML (< 4.00); SODIUM LEVEL 139 MEQ/L (136-145); TOTAL PROTEIN 7.3 GM/DL (6.4-8.2); TRIGLYCERIDES LEVEL 128 MG/DL (<150)
[2020-02-18 12:43] LABS: TESTOSTERONE 590 NG/DL (241-827)
--- NOTE | 2020-03-09 12:18 | ECGEPIP ---
[facility] Test Date: 2020-02-18 Pat Name: MALIK TREJO Department: Room: - Gender: Male [employer]: ABEBE : 1955 Requested By: Radha Tamayo Order Number: [id number] Reading MD: Efrian Hernandez Measurements Intervals Spencer Rate: 80 P: NC: 0 QRS: 64 QRSD: 96 T: 3 QT: 346 QTc: 401 Interpretive Statements ATRIAL FIBRILLATION NONSPECIFIC ST & T-WAVE ABNORMALITY ABNORMAL RHYTHM ECG SEE SCANNED DOWNTIME REPORT
--- NOTE | 2020-03-17 08:51 | REP ---
CHEST X-RAY: CLINICAL: Hypertension and hypothyroidism. TECHNIQUE: PA and lateral COMPARISON: 03/08/18 FINDINGS: Evidence for prior sternotomy and CABG. The cardiac silhouette is normal. The lung valencia are clear. No consolidation, effusion or pneumothorax. Skeletal structures are intact. IMPRESSION: No acute cardiopulmonary process or focal consolidation. MTDD
== END ==
LOC: M LAB 09:34
PROVIDERS: ATTEND Family Medicine
DX: I10 Essential (primary) hypertension (principal); N40.0 Benign prostatic hyperplasia without lower urinary tract symptoms

== ENCOUNTER → 2021-03-04 | Outpatient (CLI) | payer OTHER, MEDICARE ==
[~2021-03-04] MED LIST changes: +FERR324T21 PO; -FERR325T16 PO; -FOLI400T PO; +FOLI400T13 PO; -LORA5SOL12 PO; +LORA5SOL44 PO; +LOSA50TA28 PO; -LOSA50TA88 PO
[2021-03-09 17:10] LABS: D001-IgE D pteronyssinus 0.17 kU/L (Class 0/I); E001-IgE Cat Epith/Dander < 0.10 kU/L (Class 0); E005-IgE Dog Dander < 0.10 kU/L (Class 0); F002-IgE Milk < 0.10 kU/L (Class 0); F004-IgE Wheat 0.46 kU/L (Class I); F013-IgE Peanut < 0.10 kU/L (Class 0); F014-IgE Soybean < 0.10 kU/L (Class 0); F026-IgE Pork < 0.10 kU/L (Class 0); F027-IgE Beef < 0.10 kU/L (Class 0); F245-IgE Egg, Whole < 0.10 kU/L (Class 0); FX02-IgE Food Mix (Sea Foods) Negative (.); G002-IgE Bermuda Grass < 0.10 kU/L (Class 0); G008-IgE Kentucky Bluegrass < 0.10 kU/L (Class 0); M001-IgE Penicillium chrysogen < 0.10 kU/L (Class 0); M002 IgE Cladosporium herbaru < 0.10 kU/L (Class 0); M003 IgE Aspergillus fumigatu < 0.10 kU/L (Class 0); M006-IgE Alternaria alternata < 0.10 kU/L (Class 0); T001-IgE Maple/Box Elder < 0.10 kU/L (Class 0); T003-IgE Common Silver Birch < 0.10 kU/L (Class 0); T006-IgE Cedar, Mountain 0.11 kU/L (Class 0/I); T007-IgE Oak, White < 0.10 kU/L (Class 0); T008-IgE Elm, American < 0.10 kU/L (Class 0); T015-IgE Ash, White 0.17 kU/L (Class 0/I); T041-IgE Hickory, White < 0.10 kU/L (Class 0); T070-IgE White Mulberry < 0.10 kU/L (Class 0); W001-IgE Ragweed, Short < 0.10 kU/L (Class 0); W009-IgE Plantain, English < 0.10 kU/L (Class 0); W014-IgE Pigweed, Rough < 0.10 kU/L (Class 0); W018-IgE Sheep Sorrel < 0.10 kU/L (Class 0)
== END ==
LOC: M WUC 09:47
PROVIDERS: ATTEND Allergy & Immunology
DX: J30.1 Allergic rhinitis due to pollen (principal); J32.0 Chronic maxillary sinusitis; R05 Cough

== ENCOUNTER → 2021-11-30 | Outpatient (CLI) | payer MEDICARE, OTHER ==
[2021-11-30 09:47] LABS: HEMATOCRIT 46.6 % (42.0-52.0); HEMOGLOBIN 16.2 g/dl (13.5-17.5); MEAN CORPUSCULAR HEMOGLOBIN 31.9 pg (27.0-33.0); MEAN CORPUSCULAR HGB CONC 34.8 g/dl (32.0-36.5); MEAN CORPUSCULAR VOLUME 91.7 fl (80.0-96.0); PLATELET COUNT, AUTOMATED 143 10^3/uL (150-450); RED BLOOD COUNT 5.08 10^6/uL (4.30-6.10); WHITE BLOOD COUNT 7.9 10^3/uL (4.0-10.0)
[2021-11-30 10:31] LABS: ALBUMIN 4.1 GM/DL (3.2-5.2); ALT/SGPT 15 U/L (12-78); BILIRUBIN,TOTAL 2.2 MG/DL (0.2-1.0); BLOOD UREA NITROGEN 8 MG/DL (7-18); CALCIUM LEVEL 9.9 MG/DL (8.8-10.2); CARBON DIOXIDE LEVEL 31 MEQ/L (21-32); CHLORIDE LEVEL 104 MEQ/L (98-107); CHOLESTEROL LEVEL 104 MG/DL (<200); CREATININE FOR GFR 0.86 MG/DL (0.70-1.30); GLOMERULAR FILTRATION RATE > 60.0 (>49); GLUCOSE, FASTING 119 MG/DL (70-100); HDL CHOLESTEROL 52 MG/DL (>40); LDL CHOLESTEROL 30 MG/DL (<100); NON-HDL-C 52 MG/DL; PROSTATIC SPECIFIC AG MONITOR 0.52 NG/ML (< 4.00); SODIUM LEVEL 139 MEQ/L (136-145); TESTOSTERONE 471 NG/DL (241-827); TOTAL 25(OH) VITAMIN D 26.2 NG/ML (30.0-100.0); TOTAL PROTEIN 7.3 GM/DL (6.4-8.2); TRIGLYCERIDES LEVEL 109 MG/DL (<150)
[2021-11-30 10:43] LABS: HEMOGLOBIN A1c 5.4 %
== END ==
LOC: M RAD 09:07
PROVIDERS: ATTEND Family Medicine
DX: D64.9 Anemia, unspecified (principal); R97.20 Elevated prostate specific antigen [PSA]; E78.00 Pure hypercholesterolemia, unspecified

== ENCOUNTER → 2023-01-29 | Outpatient (CLI) | payer MEDICARE, OTHER ==
[~2023-01-29] MED LIST changes: +FLUT50SP17; -FLUTISP
[2023-01-29 11:15] LABS: HEMATOCRIT 48.5 % (42.0-52.0); HEMOGLOBIN 16.8 g/dl (13.5-17.5); MEAN CORPUSCULAR HEMOGLOBIN 32.6 pg (27.0-33.0); MEAN CORPUSCULAR HGB CONC 34.6 g/dl (32.0-36.5); PLATELET COUNT, AUTOMATED 146 10^3/uL (150-450); RED BLOOD COUNT 5.16 10^6/uL (4.30-6.10); WHITE BLOOD COUNT 9.3 10^3/uL (4.0-10.0)
[2023-01-29 11:33] LABS: PROSTATIC SPECIFIC AG MONITOR 0.39 NG/ML (< 4.00)
[2023-01-29 11:35] LABS: HEMOGLOBIN A1c 5.7 % (4.0-6.0)
[2023-01-29 11:37] LABS: THYROID STIMULATING HORMONE 1.912 uIU/ML (0.55-4.78); TOTAL 25(OH) VITAMIN D 38.3 NG/ML (20.0-100.0)
[2023-01-29 11:43] LABS: ALBUMIN 4.4 G/DL (3.2-5.2); ALKALINE PHOSPHATASE 72 U/L (46-116); ALT/SGPT 20 U/L (7.0-40); AST/SGOT 46 U/L (<34); BILIRUBIN,TOTAL 3.2 MG/DL (0.3-1.2); BLOOD UREA NITROGEN 8 MG/DL (9-23); CALCIUM LEVEL 9.7 MG/DL (8.3-10.6); CARBON DIOXIDE LEVEL 30 MMOL/L (20-31); CHLORIDE LEVEL 101 MMOL/L (98-107); CHOLESTEROL LEVEL 93 MG/DL (<200); CHOLESTEROL RISK RATIO 2.13 (<5); CREATININE FOR GFR 0.83 MG/DL (0.70-1.30); GLOMERULAR FILTRATION RATE > 60.0 (>49); GLUCOSE, FASTING 114 MG/DL (74-106); HDL CHOLESTEROL 43.6 MG/DL (>40); LDL CHOLESTEROL 23.6 MG/DL (<100); NON-HDL-C 49.4 MG/DL; POTASSIUM SERUM 4.2 MMOL/L (3.5-5.1); SODIUM LEVEL 139 MMOL/L (136-145); TOTAL PROTEIN 7.3 G/DL (5.7-8.2); TRIGLYCERIDES LEVEL 129 MG/DL (<150)
== END ==
LOC: M EKG 10:28
PROVIDERS: ATTEND Family Medicine
DX: I10 Essential (primary) hypertension (principal); R53.83 Other fatigue; E03.9 Hypothyroidism, unspecified; I48.91 Unspecified atrial fibrillation

== ENCOUNTER → 2023-07-26 | Outpatient (CLI) | payer MEDICARE, OTHER ==
[~2023-07-26] MED LIST changes: -FLUT50SP17; +FLUTISP
[2023-07-26 11:34] LABS: PROSTATIC SPECIFIC AG MONITOR 0.48 NG/ML (< 4.00)
[2023-07-26 11:38] LABS: THYROID STIMULATING HORMONE 1.67 uIU/ML (0.55-4.78)
[2023-07-26 11:39] LABS: TOTAL 25(OH) VITAMIN D 46.9 NG/ML (20.0-100.0)
== END ==
LOC: M LAB 09:42
PROVIDERS: ATTEND Family Medicine
DX: I10 Essential (primary) hypertension (principal); R53.83 Other fatigue; N40.0 Benign prostatic hyperplasia without lower urinary tract symptoms; I25.10 Atherosclerotic heart disease of native coronary artery without angina pectoris; E78.5 Hyperlipidemia, unspecified; Z79.899 Other long term (current) drug therapy

== ENCOUNTER → 2023-07-26 | Outpatient (CLI) | payer MEDICARE, OTHER ==
[2023-07-26 11:04] LABS: BASO # 0.1 10^3/uL (0.0-0.2); BASO % 1.5 % (0.0-1.0); EOS # 0.2 10^3/uL (0.0-0.5); EOS % 3.2 % (0.0-3.0); HEMATOCRIT 48.1 % (42.0-52.0); HEMOGLOBIN 16.4 g/dl (13.5-17.5); LYMPH # 1.8 10^3/uL (1.5-5.0); LYMPH % 25.1 % (24.0-44.0); MEAN CORPUSCULAR HGB CONC 34.1 g/dl (32.0-36.5); MEAN CORPUSCULAR VOLUME 93.9 fl (80.0-96.0); MONO # 0.6 10^3/uL (0.0-0.8); MONO % 8.4 % (2.0-8.0); NEUTROPHILS # 4.4 10^3/uL (1.5-8.5); NEUTROPHILS % 61.2 % (36.0-66.0); PLATELET COUNT, AUTOMATED 146 10^3/uL (150-450); RED BLOOD COUNT 5.12 10^6/uL (4.30-6.10); WHITE BLOOD COUNT 7.1 10^3/uL (4.0-10.0)
[2023-07-26 11:37] LABS: DIGOXIN LEVEL 0.9 NG/ML (0.8-2.0); LDH LACTATE DEHYDROGENASE 148 U/L (120-246)
[2023-07-26 11:47] LABS: ALBUMIN 4.3 G/DL (3.2-5.2); ALKALINE PHOSPHATASE 63 U/L (46-116); ALT/SGPT 13 U/L (7.0-40); AST/SGOT 26 U/L (<34); BILIRUBIN,DIRECT 1.1 MG/DL (<0.4); BILIRUBIN,TOTAL 2.7 MG/DL (0.3-1.2); BLOOD UREA NITROGEN 9 MG/DL (9-23); CALCIUM LEVEL 9.5 MG/DL (8.3-10.6); CARBON DIOXIDE LEVEL 30 MMOL/L (20-31); CHLORIDE LEVEL 104 MMOL/L (98-107); CHOLESTEROL LEVEL 102 MG/DL (<200); CHOLESTEROL RISK RATIO 2.37 (<5); CREATININE FOR GFR 0.78 MG/DL (0.70-1.30); GLOMERULAR FILTRATION RATE > 60.0 (>49); GLUCOSE, FASTING 111 MG/DL (74-106); HDL CHOLESTEROL 42.9 MG/DL (>40); LDL CHOLESTEROL 38.5 MG/DL (<100); NON-HDL-C 59.1 MG/DL; POTASSIUM SERUM 4.4 MMOL/L (3.5-5.1); SODIUM LEVEL 141 MMOL/L (136-145); TOTAL PROTEIN 7.1 G/DL (5.7-8.2); TRIGLYCERIDES LEVEL 103 MG/DL (<150)
== END ==
LOC: M LAB 09:45
PROVIDERS: ATTEND Internal Medicine Cardiovascular Disease
DX: I25.10 Atherosclerotic heart disease of native coronary artery without angina pectoris (principal); E78.5 Hyperlipidemia, unspecified; I10 Essential (primary) hypertension

== ENCOUNTER → 2024-07-21 | Outpatient (CLI) | payer MEDICARE, OTHER ==
[~2024-07-21] MED LIST changes: -BAYE325T12 PO; +BAYE325T2 PO
[2024-07-21 11:03] LABS: HEMOGLOBIN 16.9 g/dl (13.5-17.5); MEAN CORPUSCULAR HGB CONC 33.8 g/dl (32.0-36.5); MEAN CORPUSCULAR VOLUME 94.7 fl (80.0-96.0); PLATELET COUNT, AUTOMATED 134 10^3/uL (150-450); RED BLOOD COUNT 5.28 10^6/uL (4.30-6.10); WHITE BLOOD COUNT 7.4 10^3/uL (4.0-10.0)
[2024-07-21 11:21] LABS: HEMOGLOBIN A1c 4.9 % (4.0-6.0)
[2024-07-21 11:38] LABS: ALBUMIN 4.5 G/DL (3.2-5.2); ALKALINE PHOSPHATASE 63 U/L (40-129); ALT/SGPT < 9 U/L (7.0-40); AST/SGOT 23 U/L (<34); BLOOD UREA NITROGEN 10 MG/DL (9-23); CALCIUM LEVEL 9.6 MG/DL (8.3-10.6); CARBON DIOXIDE LEVEL 31 MMOL/L (20-31); CHLORIDE LEVEL 100 MMOL/L (98-107); CHOLESTEROL LEVEL 118 MG/DL (<200); CHOLESTEROL RISK RATIO 2.51 (<5); CREATININE FOR GFR 0.74 MG/DL (0.70-1.30); GLOMERULAR FILTRATION RATE > 60.0 (>49); GLUCOSE, FASTING 103 MG/DL (74-106); LDL CHOLESTEROL 47.6 MG/DL (<100); POTASSIUM SERUM 4.1 MMOL/L (3.5-5.1); PROSTATIC SPECIFIC AG MONITOR 0.46 NG/ML (< 4.00); SODIUM LEVEL 140 MMOL/L (136-145); THYROID STIMULATING HORMONE 1.658 uIU/ML (0.55-4.78); TOTAL 25(OH) VITAMIN D 51.7 NG/ML (20.0-100.0); TOTAL PROTEIN 7.4 G/DL (5.7-8.2); TRIGLYCERIDES LEVEL 117 MG/DL (<150)
== END ==
LOC: M LAB 09:54
PROVIDERS: ATTEND Family Medicine
DX: I10 Essential (primary) hypertension (principal); R97.20 Elevated prostate specific antigen [PSA]